=== PATIENT | female | born 1995 | race Caucasian/White ===

== ENCOUNTER 2021-10-13 02:26 | Emergency (ER) | payer SELFPAY ==
[2021-10-13] MEDS ORDERED: diphenhydrAMINE HCL 25 MG CAPSULE (FP) PO ONE ×2 (03:49→04:02)
[2021-10-13 04:06] VITALS: BP 108/70; PULSE 68; TEMP 98; BMI 20.3
== END 2021-10-13 04:26 | disposition home or self-care (01) ==
LOC: JER 02:26
DX: R21 Rash and other nonspecific skin eruption (principal)
CPT/HCPCS: 99283-25